=== PATIENT | female | born 1945 | race American Indian/Alaskan Native ===

== ENCOUNTER 2020-10-31 12:16 | Emergency (ER) | payer BC ==
[~2020-10-31] VITALS: Ht 167.6 cm; Wt 71.7 kg
[2020-10-31 12:22] VITALS: BP 145/75
--- NOTE | 2020-10-31 12:26 | NUR ---
Pt taken to ER bed 11.
--- NOTE | 2020-10-31 12:47 | NUR ---
75/F presents to ED with complaints of palpitations, lightheadedness, and dizziness x2 days. Pt states she gets SOB with taking short walks. Pt denies chest pain. Denies pain at this time. AOX4. Pt placed on cardiac monitoring and shows rapid a. fib. O2 sat 100% on room air.
--- NOTE | 2020-10-31 13:01 | NUR ---
Dr. Morales at pt bedside for further evaluation.
[2020-10-31] MEDS ORDERED: ASPIRIN 325 MG TAB PO ONE (13:05)
[2020-10-31] MEDS ORDERED: DILTIAZEM 25 MG/5 ML VIAL IVP ONE (13:05)
[2020-10-31 13:12] LABS: BASOPHILS % (AUTO) 0.5 % (0.0-2.0); EOSINOPHILS # (AUTO) 0.2 K/uL (0-0.4); EOSINOPHILS % (AUTO) 2.1 % (0.0-4.0); HEMATOCRIT 42.7 % (36-48); HEMOGLOBIN 14.4 g/dL (12.0-16.0); LYMPHOCYTES # (AUTO) 1.9 K/uL (2.5-16.5); LYMPHOCYTES % (AUTO) 25.3 % (20.5-51.1); MEAN CORPUSCULAR HEMOGLOBIN 37 pg (27-31); MEAN CORPUSCULAR HGB CONC 34 g/dL (33-37); MEAN CORPUSCULAR VOLUME 108.8 fL (80-94); MONOCYTES # (AUTO) 0.4 K/uL (0.8-1.0); MONOCYTES % (AUTO) 5.5 % (1.7-9.3); NEUTROPHILS # (AUTO) 4.9 K/uL (1.8-7.7); NEUTROPHILS % (AUTO) 66.6 % (42.2-75.2); PLATELET COUNT (AUTO) 93 K/uL (140-450); RED BLOOD CELL COUNT(AUTO) 3.92 MIL/uL (4.20-5.40); RED CELL DISTRIBUTION WIDTH 13.4 % (11.6-13.7); WHITE BLOOD COUNT (AUTO) 7.4 K/uL (4.8-10.8)
--- NOTE | 2020-10-31 13:26 | NUR ---
orthotics technician at pt bedside.
[2020-10-31 13:32] LABS: ALBUMIN 4.3 g/dL (3.4-5.0); ANION GAP 9.8 (8-16); ASPARTATE AMINOTRANSFERASE 23 U/L (15-37); CARBON DIOXIDE 28.7 mmol/L (21-32); CHLORIDE 104 mmol/L (98-107); CREATININE 1.1 mg/dL (0.6-1.3); GLUCOSE 105 mg/dL (74-106); LIPASE 272 U/L (73-393); POTASSIUM 4.5 mmol/L (3.5-5.1); SODIUM SERUM 138 mmol/L (136-145); TOTAL BILIRUBIN 0.4 mg/dL (0.0-1.0); UREA NITROGEN, BLOOD 15 mg/dL (7-18)
[2020-10-31 14:13] LABS: FREE T4 (FREE THYROXINE) 0.92 ng/dL (0.76-1.46); THYROID STIMULATING HORMONE 8.41 uIU/mL (0.34-3.74)
--- NOTE | 2020-10-31 14:37 | NUR ---
Pt resting comfortably in bed, HOB elevated. VSS, will continue to monitor.
--- NOTE | 2020-10-31 16:48 | NUR ---
Pt in room eyes closed, visible eyes closed, VSS, will continue to monitor.
--- NOTE | 2020-10-31 17:01 | NUR ---
Gave report to EDWIN Mcknight. For pending transfer ETA for pick-up 1750. ETA for transfer 1900.
--- NOTE | 2020-10-31 18:54 | NUR ---
Patient to be transferred to [facility]. Is being transferred due to CONTINUITY OF CARE. Receiving facility has accepting physician and available space. ER physician has signed transfer form. Patient or responsible democrat has agreed to transfer and signed form. Patient belongings inventoried and will be sent with patient. Copy of nursing notes, lab reports, EKG, Physicians Orders and X-rays to be sent with patient. Report called to EDWIN BOWEN at receiving facility. [facility] ambulance service has been called for transfer. ETA is 1HR.
[2020-10-31 19:19] VITALS: BP 126/83
== END 2020-10-31 18:52 | disposition short-term general hospital (02) ==
LOC: MED 12:16
DX: I48.91 Unspecified atrial fibrillation (principal); E78.00 Pure hypercholesterolemia, unspecified; Z88.0 Allergy status to penicillin; Z20.822 Contact with and (suspected) exposure to COVID-19
CPT/HCPCS: 36415; 71045; 80053; 83690; 83735; 84439; 84443; 84484; 85025; 87426; 93005; 96374; 99285; J3490